=== PATIENT | female | born 1985 | race Caucasian/White ===

== ENCOUNTER 2018-12-04 04:45 | Day surgery (SDC) | payer BC, MEDICAID ==
--- NOTE | 2018-12-03 16:57 | ER Document Report ---
ED Medical Screen (RME) - General Chief Complaint: Epigastric Pain Stated Complaint: ABDOMINAL PAIN Time Seen by Provider: 12/03/18 16:50 Primary Care Provider: ABBI EUBANKS NP [Primary Care Provider] - Follow up as needed TRAVEL OUTSIDE OF THE [place] IN LAST 30 DAYS: No - HPI Notes: 12/03/18 16:56 33-year-old female to the emergency department with complaints of epigastric and right upper quadrant abdominal pain that has gotten worse over the past [age] year-old female to the emergency department with complaints of epigastric and right upper quadrant abdominal pain that has been getting progressively worse over the past month month but constant today with associated nausea and vomiting today. She states that she has had at least 10 episodes of vomiting today. She admits to sweating but no joni fevers. She denies any association with any types of foods. She denies family history of gallbladder disease. She drinks alcohol occasionally but none recently. She does not have a history of pancreatitis. She still has a gallbladder. I performed a medical screening exam on patient. She has epigastric and right upper quadrant abdominal pain on exam. We will go ahead and order gallbladder ultrasound as well as labs, fluids, Zofran and pain medicine. Patient agrees with the plan. - Related Data Allergies/Adverse Reactions: No Known Allergies Allergy (Verified 12/03/18 16:24) Past Medical History - Social History Chew tobacco use (# tins/day): No Frequency of alcohol use: None Drug Abuse: None - Immunizations Hx Diphtheria, Pertussis, Tetanus Vaccination: No Physical Exam - Vital signs Vitals: Temp Pulse Resp BP Pulse Ox 97.7 F 60 20 116/71 99 12/03/18 16:26 12/03/18 16:26 12/03/18 16:26 12/03/18 16:26 12/03/18 16:26 Course - Vital Signs Vital signs: Temp Pulse Resp BP Pulse Ox 97.7 F 60 20 116/71 99 12/03/18 16:26 12/03/18 16:26 12/03/18 16:26 12/03/18 16:26 12/03/18 16:26 Doctor's Discharge - Discharge Referrals: ABBI EUBANKS NP [Primary Care Provider] - Follow up as needed
--- NOTE | 2018-12-03 17:33 | ER Document Report ---
ED GI/ - General Chief Complaint: Epigastric Pain Stated Complaint: ABDOMINAL PAIN Time Seen by Provider: 12/03/18 16:50 Mode of Arrival: Ambulatory Information source: Patient Notes: 33-year-old female presents to ED for complaint of epigastric abdominal pain that is gotten worse over the last month. She states it is been constant all day and she is vomited at least 10 times today. Patient states she has been sweating today but has not had any fevers. She states the pain and vomiting is not associated with any type of food. She states she does not have a personal history of gallbladder disease but does have a family history. She states she drinks less than once or twice a year. She does not have any history of any pancreatic or gallbladder problems. She is alert and oriented respirations regular and unlabored speaking in full sentences. TRAVEL OUTSIDE OF THE [place] IN LAST 30 DAYS: No - HPI Patient complains to provider of: Abdominal pain, Vomiting Onset: Other - Month ago worse today Timing/Duration: Intermittent - For the last month, Persistent - Today Quality of pain: Sharp, Stabbing Severity at maximum: Moderate Severity in ED: Moderate, Severe Pain Level: 4 Location: RUQ Vaginal bleeding (Compared to normal period): Similar - Start her menstrual cycle today Associated symptoms: Nausea, Vomiting Exacerbated by: Denies Relieved by: Denies Similar symptoms previously: Yes Recently seen / treated by doctor: No - Related Data Allergies/Adverse Reactions: Sulfa (Sulfonamide Antibiotics) Allergy (Intermediate, Verified 12/03/18 23:31) Hives Past Medical History - General Information source: Patient - Social History Smoking Status: Former Smoker - vapor cigarette now Chew tobacco use (# tins/day): No Frequency of alcohol use: Rare Drug Abuse: None Lives with: Family Family History: Reviewed & Not Pertinent Patient has suicidal ideation: No Patient has homicidal ideation: No - Past Medical History Cardiac Medical History: Reports: None Pulmonary Medical History: Reports: Hx Asthma EENT Medical History: Reports: None Neurological Medical History: Reports: None Endocrine Medical History: Reports: None Renal/ Medical History: Reports: None Malignancy Medical History: Reports: None GI Medical History: Reports: None Musculoskeletal Medical History: Reports None Skin Medical History: Reports None Psychiatric Medical History: Reports: None Traumatic Medical History: Reports: None Infectious Medical History: Reports: None Surgical Hx: Negative Past Surgical History: Reports: None - Immunizations Hx Diphtheria, Pertussis, Tetanus Vaccination: Yes - 2011 Review of Systems - Review of Systems Constitutional: No symptoms reported EENT: No symptoms reported Cardiovascular: No symptoms reported Respiratory: No symptoms reported Gastrointestinal: Abdominal pain, Nausea, Vomiting Genitourinary: No symptoms reported Female Genitourinary: No symptoms reported Musculoskeletal: No symptoms reported Skin: No symptoms reported Hematologic/Lymphatic: No symptoms reported Neurological/Psychological: No symptoms reported -: Yes All other systems reviewed and negative Physical Exam - Vital signs Vitals: Temp Pulse Resp BP Pulse Ox 97.7 F 60 20 116/71 99 12/03/18 16:26 12/03/18 16:26 12/03/18 16:26 12/03/18 16:26 12/03/18 16:26 Interpretation: Normal - General General appearance: Appears well, Alert - HEENT Head: Normocephalic, Atraumatic Eyes: Normal Pupils: PERRL - Respiratory Respiratory status: No respiratory distress Chest status: Nontender Breath sounds: Normal Chest palpation: Normal - Cardiovascular Rhythm: Regular Heart sounds: Normal auscultation Murmur: No - Abdominal Inspection: Normal Distension: No distension Bowel sounds: Hyperactive Tenderness: Tender Organomegaly: No organomegaly - Back Back: Normal, Nontender - Extremities General upper extremity: Normal inspection, Nontender, Normal color, Normal ROM, Normal temperature General lower extremity: Normal inspection, Nontender, Normal color, Normal ROM, Normal temperature, Normal weight bearing. No: Yobani's sign - Neurological Neuro grossly intact: Yes Cognition: Normal Orientation: AAOx4 [place] Coma Scale Eye Opening: Spontaneous [place] Coma Scale Verbal: Oriented [place] Coma Scale Motor: Obeys Commands [place] Coma Scale Total: 15 Speech: Normal Motor strength normal: LUE, RUE, LLE, RLE Sensory: Normal - Psychological Associated symptoms: Normal affect, Normal mood - Skin Skin Temperature: Warm Skin Moisture: Dry Skin Color: Normal Course - Re-evaluation Re-evalutation: 12/03/18 19:[address] Escalante concerning her negative ultrasound elevated white count and pain to the right upper quadrant. She is already been treated with fentanyl 50 at 530 and she is in severe pain at this time. She is also nauseated. I have ordered morphine and further Zofran as well as IV fluids. Dr. Escalante recommended a CT IV and oral contrast for the abdomen and pelvis as the ultrasound was negative. Dr. Escalante came over and examined the patient. He stated that the patient could not be discharged home because she was not keeping down fluids. He stated that she did need to have a HIDA scan done if the HIDA scan was negative that she needed to be admitted to medicine for intractable nausea and vomiting if that has a scan is positive he will take her to surgery and remove the gallbladder. Patient has been to HIDA scan and we are awaiting the results. 12/04/18 02:06 Dr. German has been given an update on this patient's care. He will take over the patient's treatment now. Patient is in HIDA scan - Vital Signs Vital signs: Temp Pulse Resp BP Pulse Ox 98.5 F 58 L 17 107/50 L 99 12/04/18 11:35 12/04/18 11:35 12/04/18 11:35 12/04/18 11:35 12/04/18 11:35 - Laboratory Result Diagrams: 12/03/18 17:25 12/03/18 17:25 Laboratory results interpreted by me: 12/03/18 12/03/18 12/03/18 17:25 17:25 17:25 WBC 15.3 H Lymph % (Auto) 8.1 L Absolute Neuts (auto) 13.6 H Seg Neutrophils % 88.4 H Glucose 127 H AST 42 H Urine Ketones 20 H Urine Blood MODERATE H Discharge - Discharge Clinical Impression: Upper abdominal pain Condition: Stable Disposition: ADMITTED INPATIENT
[2018-12-03 17:40] LABS: ABSOLUTE BASOPHILS # (AUTO) 0.1 10^3/uL (0.0-0.2); ABSOLUTE LYMPHOCYTES (AUTO) 1.2 10^3/uL (0.5-4.7); ABSOLUTE MONOCYTES (AUTO) 0.5 10^3/uL (0.1-1.4); ABSOLUTE NEUT (AUTO) 13.6 10^3/uL (1.7-8.2); BASOPHILS % (AUTO) 0.4 % (0-2); HEMATOCRIT 40.3 % (36.0-47.0); LYMPHOCYTES % (AUTO) 8.1 % (13-45); MEAN CORPUSCULAR HEMOGLOBIN 30.2 pg (27.0-33.4); MEAN CORPUSCULAR HGB CONC 34.8 g/dL (32.0-36.0); MEAN CORPUSCULAR VOLUME 87 fl (80-97); MONOCYTES % (AUTO) 3.1 % (3-13); PLATELET COUNT 300 10^3/uL (150-450); RED BLOOD COUNT 4.65 10^6/uL (3.72-5.28); RED CELL DISTRIBUTION WIDTH 12.1 % (11.5-14.0); SEGMENTED NEUTROPHILS % (AUTO) 88.4 % (42-78); TOTAL CELLS COUNTED % (AUTO) 100 %; WHITE BLOOD COUNT 15.3 10^3/uL (4.0-10.5)
[2018-12-03 17:49] LABS: APPEARANCE,URINE CLEAR; BILIRUBIN,URINE NEGATIVE (NEGATIVE); COLOR,URINE YELLOW; GLUCOSE, URINE NEGATIVE (NEGATIVE); KETONES,URINE 20 mg/dL (NEGATIVE); LEUKOCYTE ESTERASE,URINE NEGATIVE (NEGATIVE); NITRITE,URINE NEGATIVE (NEGATIVE); PROTEIN,URINE NEGATIVE (NEGATIVE); URINE SPECIFIC GRAVITY 1.024; UROBILINOGEN,URINE NEGATIVE mg/dL (<2.0)
[2018-12-03 17:56] LABS: ALBUMIN 4.7 g/dL (3.5-5.0); ALKALINE PHOSPHATASE 73 U/L (38-126); ANION GAP 9 (5-19); ASPARTATE AMINO TRANSFERASE 42 U/L (14-36); BILIRUBIN,DIRECT 0.1 mg/dL (0.0-0.4); BILIRUBIN,TOTAL 0.5 mg/dL (0.2-1.3); BLOOD UREA NITROGEN 13 mg/dL (7-20); CALCIUM 9.8 mg/dL (8.4-10.2); CARBON DIOXIDE 25 mmol/L (22-30); CHLORIDE 105 mmol/L (98-107); GLUCOSE 127 mg/dL (75-110); POTASSIUM 4.3 mmol/L (3.6-5.0); TOTAL PROTEIN 7.9 g/dL (6.3-8.2)
--- NOTE | 2018-12-03 18:10 | RADIOLOGY REPORT (SQ) ---
EXAM DESCRIPTION: U/S ABDOMEN LIMITED W/O DOP COMPLETED DATE/TIME: 12/03/2018 6:01 pm REASON FOR STUDY: epigastric, RUQ abd pain, vomiting COMPARISON: None. TECHNIQUE: Dynamic and static grayscale images acquired of the abdomen and recorded on PACS. Additio rosmery selected color Doppler and spectral images recorded. LIMITATIONS: None. FINDINGS: PANCREAS: Obscured LIVER: No masses. Echotexture normal. LIVER VASCULATURE: Normal directional flow of the main portal vein and hepatic veins. GALLBLADDER: No stones. Normal wall thickness. No pericholecystic fluid. ULTRASOUND-DETECTED GONZALEZ'S SIGN: Positive. INTRAHEPATIC DUCTS AND COMMON DUCT: CBD and intrahepatic ducts normal caliber. No filling defects. INFERIOR VENA CAVA: Normal flow. AORTA: No aneurysm. RIGHT KIDNEY: Normal size. Normal echogenicity. No solid or suspicious masses. No hydronephrosis. No calcifications. PERITONEAL AND RIGHT PLEURAL SPACE: No ascites or effusions. OTHER: No other significant findings. IMPRESSION: NORMAL RIGHT UPPER QUADRANT ULTRASOUND. Positive sonographic Gonzalez's sign. TECHNICAL DOCUMENTATION: JOB ID: [id number] [employer]- All Rights Reserved Reading location - IP/workstation name: [email or web address]
--- NOTE | 2018-12-03 22:18 | RADIOLOGY REPORT (SQ) ---
EXAM DESCRIPTION: CT ABDOMEN PELVIS WITH IV CONTRAST COMPLETED DATE/TME: 12/03/2018 19:16 CLINICAL HISTORY: 33 years, Female, ruq pain with elevated wbc COMPARISON: None. TECHNIQUE: 817 Images stored on PACS. All CT scanners at this facility use dose modulation, iterative reconstruction, and/or weight based dosing when appropriate to reduce radiation dose to as low as reasonably achievable (ALARA). [facility]: Dose Right [facility]: CareDose [facility]: Dose Right [facility]: Teradose 4D [facility]: [employer] LIMITATIONS: None. FINDINGS: Visualized lung bases are unremarkable. Osseous structures are grossly intact. The liver, spleen, adrenal glands, pancreas, kidneys are unremarkable. The gallbladder is present. No gross evidence for bowel obstruction. Normal appendix. No free air or free fluid. Abundant stool in the colon IMPRESSION: Abundant stool in the colon TECHNICAL DOCUMENTATION: Quality ID # 436: Final reports with documentation of one or more dose reduction techniques (e.g., Automated exposure control, adjustment of the mA and/or kV according to patient size, use of iterative reconstruction technique) copyright 2011 [employer]- All Rights Reserved
--- NOTE | 2018-12-04 03:24 | RADIOLOGY REPORT (SQ) ---
EXAM DESCRIPTION: NM HEPATOBILIARY WITHOUT PHARM COMPLETED DATE/TME: 12/03/2018 23:52 CLINICAL HISTORY: 33 years, Female, Right upper quadrant pain nausea and vomiting COMPARISON: CT today's date RADIONUCLIDE AND DOSE: 5.4 mCi technetium 99m the vertebral foramen ADDITIONAL DRUGS AND DOSES: None TECHNIQUE: Following the IV administration of the vertebral foramen, hepatobiliary imaging was performed. 2 minute per frame images over the right upper quadrant were obtained. 90 minute delayed images were obtained however the patient was in too much pain to tolerate to our delayed images RADIATION DOSE: 5.4 mCi technetium 99m LIMITATIONS: None. FINDINGS: Normal by chronic activity and hepatic parenchyma. Prompt visualization of the CBD and small bowel after 10 to 12 minutes. There is reflux of contrast into the distal stomach. However, there is no definitive visualization of the gallbladder. IMPRESSION: No definitive visualization of the gallbladder. The patient was unable to tolerate delayed images. Cystic duct obstruction is not excluded copyright 2010 [employer]- All Rights Reserved
--- NOTE | 2018-12-04 04:25 | ER Document Report ---
Doctor's Note Notes: 12/04/18 04:24 HIDA scan shows no visualization of the gallbladder, questioning obstructive pattern. Patient will be admitted by surgery. Discharge - Discharge Clinical Impression: Upper abdominal pain Condition: Stable Disposition: ADMITTED INPATIENT Admitting Provider: Surgicalist Unit Admitted: Surgical Floor Prescriptions: Ondansetron [Zofran Odt 4 mg Tablet] 1 tab PO Q6H #7 tab.rapdis
[~2018-12-04 04:45] MED LIST: FENTANYL CITRATE INJ/PF 100 MCG/2 ML AMPUL IV ONE; MAGNESIUM CITRATE 296 ML BOTTLE PO ONE; MORPHINE SULFATE 10 MG/ML INJ IV ONE; NORMAL SALINE 1000 ML 1,000 ML IV ONE; ONDANSETRON 4 MG TAB.RAPDIS PO ONE; ONDANSETRON HCL INJ/PF 4 MG/2 ML SDV IV ONE
[2018-12-04] MEDS ORDERED: ONDANSETRON 4 MG TAB.RAPDIS PO PRN (05:01)
--- NOTE | 2018-12-04 05:01 | PDOC H&P ---
History of Present Illness Patient complains of: Abdominal pain History of Present Illness: ARLETTE MAS is a 33 year old female presenting with a several week history of frequent episodes of epigastric abdominal pain with associated nausea and in the last day frequent emesis. She is uncertain about the precipitating factors but does not think it is associated with a food intake. She notes that pain is better after Zantac. However in the last 24 hours she has had persistent epigastric and right upper quadrant abdominal pain with emesis with inability to tolerate any p.o. intake. She denies any fever. No jaundice. She does state that at times she gets sweats and gets jittery. She has not had any weight loss in the last several weeks. Past Medical History Cardiac Medical History: Reports: None Pulmonary Medical History: Reports: Asthma EENT Medical History: Reports: None Neurological Medical History: Reports: None Endocrine Medical History: Reports: None Renal/ Medical History: Reports: None Malignancy Medical History: Reports: None GI Medical History: Reports: None Musculoskeltal Medical History: Reports: None Skin Medical History: Reports: None Psychiatric Medical History: Reports: None Traumatic Medical History: Reports: None Infectious Medical History: Reports: None Past Surgical History Past Surgical History: Reports: Other - [place] teeth extraction in the remote past. Social History Lives with: Family Smoking Status: Current Every Day Smoker Frequency of Alcohol Use: Rare Hx Recreational Drug Use: No Hx Prescription Drug Abuse: No Family History Family History: Reviewed & Not Pertinent Parental Family History Reviewed: Yes - Breast cancer in grandmother but no first-degree relatives Children Family History Reviewed: Yes Sibling(s) Family History Reviewed.: Yes Medication/Allergy Home Medications: No Home Medications 1 09/17/11 Ondansetron [Zofran Odt 4 mg Tablet] 1 tab PO Q6H #7 tab.rapdis 12/03/18 Allergies/Adverse Reactions: Sulfa (Sulfonamide Antibiotics) Allergy (Intermediate, Verified 12/03/18 23:31) Ceci Review of Systems All systems: reviewed and no additional remarkable complaints except as stated Constitutional: PRESENT: as per HPI Gastrointestinal: PRESENT: as per HPI Allergic/Immunologic: PRESENT: other - Allergic to sulfa Physical Exam Vital Signs: Temp Pulse Resp BP Pulse Ox 98.1 F 80 20 129/77 H 100 12/03/18 23:27 12/03/18 23:27 12/03/18 16:26 12/03/18 23:27 12/03/18 23:27 Intake & Output 12/02/18 12/03/18 12/04/18 06:59 06:59 06:59 Weight 102.9 kg General appearance: PRESENT: no acute distress, cooperative Eye exam: PRESENT: conjunctiva pink Neck exam: PRESENT: other - Supple with no masses and no tenderness Respiratory exam: PRESENT: clear to auscultation polina Cardiovascular exam: PRESENT: RRR GI/Abdominal exam: PRESENT: other - Soft, nondistended, focal tenderness to palpation in the right upper quadrant with a positive Gonzalez sign. Extremities exam: PRESENT: other - No swelling and no tenderness Neurological exam: PRESENT: alert, awake Psychiatric exam: PRESENT: appropriate affect Skin exam: PRESENT: warm Results Laboratory Results: 12/03/18 17:25 12/03/18 17:25 12/03/18 12/03/18 12/03/18 17:25 17:25 17:25 WBC 15.3 H RBC 4.65 Hgb 14.0 Hct 40.3 MCV 87 MCH 30.2 MCHC 34.8 RDW 12.1 Plt Count 300 Seg Neutrophils % 88.4 H Sodium 139.0 Potassium 4.3 Chloride 105 Carbon Dioxide 25 Anion Gap 9 BUN 13 Creatinine 0.78 Est GFR ( Amer) > 60 Glucose 127 H Calcium 9.8 Total Bilirubin 0.5 AST 42 H Alkaline Phosphatase 73 Total Protein 7.9 Albumin 4.7 Lipase 47.0 Serum HCG, Qual NEGATIVE Urine Color Urine Appearance Urine pH Ur Specific [place] Urine Protein Urine Glucose (UA) Urine Ketones Urine Blood Urine Nitrite Ur Leukocyte Esterase Urine WBC (Auto) Urine RBC (Auto) 12/03/18 17:25 WBC RBC Hgb Hct MCV MCH MCHC RDW Plt Count Seg Neutrophils % Sodium Potassium Chloride Carbon Dioxide Anion Gap BUN Creatinine Est GFR ( Amer) Glucose Calcium Total Bilirubin AST Alkaline Phosphatase Total Protein Albumin Lipase Serum HCG, Qual Urine Color YELLOW Urine Appearance CLEAR Urine pH 5.0 Ur Specific [place] 1.024 Urine Protein NEGATIVE Urine Glucose (UA) NEGATIVE Urine Ketones 20 H Urine Blood MODERATE H Urine Nitrite NEGATIVE Ur Leukocyte Esterase NEGATIVE Urine WBC (Auto) 2 Urine RBC (Auto) 2 Impressions: Abdomen Ultrasound 12/03/18 16:55 IMPRESSION: NORMAL RIGHT UPPER QUADRANT ULTRASOUND. Positive sonographic Gonzalez's sign. Abdomen/Pelvis CT 12/03/18 19:16 IMPRESSION: Abundant stool in the colon TECHNICAL DOCUMENTATION: Quality ID # 436: Final reports with documentation of one or more dose reduction techniques (e.g., Automated exposure control, adjustment of the mA and/or kV according to patient size, use of iterative reconstruction technique) copyright 2010 [employer]- All Rights Reserved Hepatobiliary Scan Nuclear Medicine 12/03/18 23:52 IMPRESSION: No definitive visualization of the gallbladder. The patient was unable to tolerate delayed images. Cystic duct obstruction is not excluded copyright 2010 [employer]- All Rights Reserved Assessment & Plan - Diagnosis (1) Cholecystitis without cholelithiasis Is this a current diagnosis for this admission?: Yes Plan: Elevated white blood cell count, marked tenderness to palpation in the right upper quadrant, nonvisualization of the gallbladder on HIDA scan all indicate cholecystitis. I do not have an explanation for why the ultrasound and the CT scan did not demonstrate any gallbladder abnormalities, although the gallbladder does appear distended on the CT and the ultrasound study demonstrated a positive ultrasound Gonzalez sign. I have recommended to the patient admission for laparoscopic cholecystectomy. I have explained to the patient the risk and benefits of the procedure including risk of mistaken diagnosis, infection, bleeding, adjacent structure injury such as bile duct injury and intestinal injury, and postcholecystectomy diarrhea. Patient understands and agrees to proceed. If after surgery she does not have resolution of her symptoms that she has been experiencing for the past several weeks, she would benefit from a esophagogastroduodenoscopy. I will admit the patient and place her on IV antib iotics, n.p.o., IV fluids. I will discuss case with the oncoming surgeon who will perform the surgery. Patient understand that the surgery will be performed by the oncoming surgeon.
[2018-12-04] MEDS ORDERED: MORPHINE SULFATE 10 MG/ML INJ IV PRN ×2 (05:05→17:33)
[2018-12-04] MEDS ORDERED: AMPICILLIN SOD/SULBACTAM 3 GM VIAL IV PRN (05:10)
[2018-12-04] MEDS: AMPICILLIN SODIUM/SULBACTAM NA 3 GM in NORMAL SALINE 100 ML IV SCH ×4 (06:22→23:58)
[2018-12-04] MEDS: NORMAL SALINE 1000 ML 1,000 ML IV PRN ×2 (08:46→18:36)
[2018-12-04] MEDS ORDERED: IPRATROPIUM/ALBUTEROL 0.5-2.5 MG/3 ML AMPUL NEB ONE (14:54)
[2018-12-04] MEDS ORDERED: FENTANYL CITRATE INJ/PF 100 MCG/2 ML AMPUL ONE ×2 (15:33→17:08)
[2018-12-04] MEDS ORDERED: BUPIVACAINE HCL 0.25% /EPINEPHRINE INJ/PF 30 ML SDV ONE (15:33)
[2018-12-04] MEDS ORDERED: MIDAZOLAM 2 MG/2 ML INJ ONE (15:33)
[2018-12-04] MEDS ORDERED: PROPOFOL INJ 200 MG/20 ML VIAL IV ONE (15:34)
[2018-12-04] MEDS ORDERED: DIPHENHYDRAMINE HCL 50 MG/ML VIAL IV PRN (15:39)
[2018-12-04] MEDS ORDERED: OXYCODONE-ACETAMINOPHEN 5-325 MG TABLET PO PRN ×3 (15:39→17:34)
[2018-12-04] MEDS ORDERED: FENTANYL CITRATE INJ/PF 100 MCG/2 ML AMPUL IV PRN ×3 (15:39)
[2018-12-04] MEDS ORDERED: PROMETHAZINE HCL INJ 25 MG/1 ML VIAL IV PRN ×2 (15:39)
[2018-12-04] MEDS ORDERED: MEPERIDINE HCL/PF INJ 25 MG/1 ML DISP.SYRIN IV PRN (15:39)
[2018-12-04] MEDS ORDERED: BUPIVACAINE HCL 0.25% /EPINEPHRINE INJ/PF 30 ML SDV INFIL ONE ×2 (16:21)
[2018-12-04] MEDS ORDERED: KETOROLAC TROMETHAMINE INJ/PF 30 MG/1 ML SDV ONE (17:49)
--- NOTE | 2018-12-04 17:54 | Operative Report ---
Operative Report DATE OF SURGERY: 12/04/18 PREOPERATIVE DIAGNOSIS: Acute acalculous cholecystitis POSTOPERATIVE DIAGNOSIS: Acute cholecystitis and cholelithiasis OPERATION: Laparoscopic cholecystectomy SURGEON: ORVILLE NICOLE ANESTHESIA: GA TISSUE REMOVED OR ALTERED: Gallbladder with stone COMPLICATIONS: None ESTIMATED BLOOD LOSS: 15 cc QUANTITATIVE BLOOD LOSS: 15 INTRAOPERATIVE FINDINGS: Acute cholecystitis with gallstone PROCEDURE: Patient was placed in supine position and after adequate general anesthesia the abdomen was then prepped and draped in the usual sterile fashion. Appropriate timeout was called. Next infraumbilical incision was made in the fascia grasped with Alem clamps and divided in the middle with 15 blade. 2 sutures of [address] on the fascia on each side of the trocar. The trochars were removed and fascia opening was then dilated with hemostat. A Morgan trocar was then inserted through the fascia to the abdominal cavity and CO2 insufflated to a pressure of 15 mmHg. A camera was then inserted. 3 other trochars were placed under direct vision. A 15 mm in the subxiphoid and 2 5 mm in the right upper quadrant. Gallbladder was then identified to be markedly distended. It was then partially evacuated with a long needle through 1 of the trocar sites. This allowed us to grasp the gallbladder. The gallbladder was then subsequently grasped and pulled over the liver. Adhesions around the area towards the cystic duct was then bluntly dissected with the use of harmonic latanya. The gallbladder was noted to be thickened wall. The cystic duct was then identified and subsequently clipped with hemoclips and divided between the distal hemoclips. The cystic artery also identified and clipped and then divided with the harmonic latanya between the clip and the gallbladder area. The gallbladder was then taken off the liver bed with the use of harmonic latanya. The gallbladder was then completely removed from the liver bed and put in an Endobag and pulled out through the umbilical port. There was palpable single stone about 1 cm in diameter in the gallbladder. Gallbladder also somewhat thickened wall. The liver bed was then inspected and irrigated. No active bleeding noted. Piece of Surgicel was placed in the liver bed for better hemostasis. All the trochars were removed and CO2 allowed to come out of the trocar sites. The infraumbilical fascial defect was then closed with a [id number] suture using 0 Vicryl and the 2 stay sutures tied over for better closure. Local anesthesia was then infiltrated over the fascia and on the incision sites. The skin incisions were then closed with running subcuticular 4-0 Vicryl undyed. Steri-Strips placed over the operative sites. Needle instrument sponge counts were all correct and estimated blood loss about 15 cc. Patient brought to recovery room satisfactory condition.
[2018-12-04] MEDS: KETOROLAC TROMETHAMINE INJ/PF 30 MG/1 ML SDV IV SCH (18:36)
[2018-12-04] MEDS ORDERED: ONDANSETRON HCL INJ/PF 4 MG/2 ML SDV ONE (20:25)
[2018-12-05] MEDS: KETOROLAC TROMETHAMINE INJ/PF 30 MG/1 ML SDV IV SCH ×2 (00:07→05:45)
[2018-12-05] MEDS: AMPICILLIN SODIUM/SULBACTAM NA 3 GM in NORMAL SALINE 100 ML IV SCH (05:45)
[2018-12-05 08:52] VITALS: BP 121/74
--- NOTE | 2018-12-11 22:21 | PDOC DISCHARGE SUMMARY ---
General - Admit/Disc Date/PCP Admission Date/Primary Care Provider: 12/04/18 04:45 Discharge Date: 12/05/18 - Discharge Diagnosis Final Diagnosis: aaaaaaaaaaaaaaaacute suppurative cholelithiasis and cholelithiasis - Assessment Summary: 33-year-old female with right upper quadrant abdominal pains for few weeks. Patient was seen in the ED on 12/03/2018 and had an ultrasound which showed no stones but suspicious for acute acalculous cholecystitis. A HIDA scan was then performed which showed no uptake of the dye into the gallbladder indicating acute cholecystitis. Patient was then admitted on 12/04/2018 and underwent laparoscopic cholecystectomy by Dr. Hull on 12/04/2018. Her postoperative course was uneventful and subsequently discharged on 12/05/2018 with final diagnosis of acute cholecystitis with cholelithiasis she will be followed up in the surgical clinic in 2 weeks and instructed not to do any lifting more than 15 pounds until seen in the clinic. - Additional Information Resuscitation Status: Full Code Discharge Diet: As Tolerated, Regular Discharge Activity: Balance Activity w/Rest Referrals: [facility] [Provider Group] - 12/12/18 11:00 am Prescriptions: Ondansetron [Zofran Odt 4 mg Tablet] 1 tab PO Q6H #7 tab.rapdis Home Medications: Ondansetron [Zofran Odt 4 mg Tablet] 1 tab PO Q6H #7 tab.rapdis 12/03/18 Norethindrone AC-Eth Estradiol [Junel] 1 each PO DAILY 12/04/18 History of Present Illiness History of Present Illness: ARLETTE MAS is a 33 year old female Physical Exam Vital Signs: Temp Pulse Resp BP Pulse Ox 98.2 F 81 16 107/50 L 99 12/05/18 08:49 12/05/18 08:49 12/05/18 08:49 12/05/18 08:49 12/05/18 08:49 Results Laboratory Results: WBC 15.3 10^3/uL (4.0-10.5) H 12/03/18 17:25 RBC 4.65 10^6/uL (3.72-5.28) 12/03/18 17:25 Hgb 14.0 g/dL (12.0-15.5) 12/03/18 17:25 Hct 40.3 % (36.0-47.0) 12/03/18 17:25 MCV 87 fl (80-97) 12/03/18 17:25 MCH 30.2 pg (27.0-33.4) 12/03/18 17:25 MCHC 34.8 g/dL (32.0-36.0) 12/03/18 17:25 RDW 12.1 % (11.5-14.0) 12/03/18 17:25 Plt Count 300 10^3/uL (150-450) 12/03/18 17:25 Lymph % (Auto) 8.1 % (13-45) L 12/03/18 17:25 [place] % (Auto) 3.1 % (3-13) 12/03/18 17:25 Eos % (Auto) 0.0 % (0-6) 12/03/18 17:25 Baso % (Auto) 0.4 % (0-2) 12/03/18 17:25 Absolute Neuts (auto) 13.6 10^3/uL (1.7-8.2) H 12/03/18 17:25 Absolute Lymphs (auto) 1.2 10^3/uL (0.5-4.7) 12/03/18 17:25 Absolute Monos (auto) 0.5 10^3/uL (0.1-1.4) 12/03/18 17:25 Absolute Eos (auto) 0.0 10^3/uL (0.0-0.6) 12/03/18 17:25 Absolute Basos (auto) 0.1 10^3/uL (0.0-0.2) 12/03/18 17:25 Seg Neutrophils % 88.4 % (42-78) H 12/03/18 17:25 Sodium 139.0 mmol/L (137-145) 12/03/18 17:25 Potassium 4.3 mmol/L (3.6-5.0) 12/03/18 17:25 Chloride 105 mmol/L (98-107) 12/03/18 17:25 Carbon Dioxide 25 mmol/L (22-30) 12/03/18 17:25 Anion Gap 9 (5-19) 12/03/18 17:25 BUN 13 mg/dL (7-20) 12/03/18 17:25 Creatinine 0.78 mg/dL (0.52-1.25) 12/03/18 17:25 Est GFR ( Amer) > 60 (>60) 12/03/18 17:25 Est GFR (MDRD) Non-Af > 60 (>60) 12/03/18 17:25 Glucose 127 mg/dL (75-110) H 12/03/18 17:25 Calcium 9.8 mg/dL (8.4-10.2) 12/03/18 17:25 Total Bilirubin 0.5 mg/dL (0.2-1.3) 12/03/18 17:25 Direct Bilirubin 0.1 mg/dL (0.0-0.4) 12/03/18 17:25 Neonat Total Bilirubin Not Reportable 12/03/18 17:25 Neonat Direct Bilirubin Not Reportable 12/03/18 17:25 Neonat Indirect Bili Not Reportable 12/03/18 17:25 AST 42 U/L (14-36) H 12/03/18 17:25 ALT 80 U/L (<35) 12/03/18 17:25 Alkaline Phosphatase 73 U/L (38-126) 12/03/18 17:25 Total Protein 7.9 g/dL (6.3-8.2) 12/03/18 17:25 Albumin 4.7 g/dL (3.5-5.0) 12/03/18 17:25 Lipase 47.0 U/L (23-300) 12/03/18 17:25 Serum HCG, Qual NEGATIVE (NEGATIVE) 12/03/18 17:25 Urine Color YELLOW 12/03/18 17:25 Urine Appearance CLEAR 12/03/18 17:25 Urine pH 5.0 (5.0-9.0) 12/03/18 17:25 Ur Specific [place] 1.024 12/03/18 17:25 Urine Protein NEGATIVE mg/dL (NEGATIVE) 12/03/18 17:25 Urine Glucose (UA) NEGATIVE mg/dL (NEGATIVE) 12/03/18 17:25 Urine Ketones 20 mg/dL (NEGATIVE) H 12/03/18 17:25 Urine Blood MODERATE (NEGATIVE) H 12/03/18 17:25 Urine Nitrite NEGATIVE (NEGATIVE) 12/03/18 17:25 Urine Bilirubin NEGATIVE (NEGATIVE) 12/03/18 17:25 Urine Urobilinogen NEGATIVE mg/dL (<2.0) 12/03/18 17:25 Ur Leukocyte Esterase NEGATIVE (NEGATIVE) 12/03/18 17:25 Urine WBC (Auto) 2 /HPF 12/03/18 17:25 Urine RBC (Auto) 2 /HPF 12/03/18 17:25 Squamous Epi Cells Auto 1 /HPF 12/03/18 17:25 Urine Mucus (Auto) RARE /LPF 12/03/18 17:25 Urine Ascorbic Acid NEGATIVE (NEGATIVE) 12/03/18 17:25 Impressions: Abdomen Ultrasound 12/03/18 16:55 IMPRESSION: NORMAL RIGHT UPPER QUADRANT ULTRASOUND. Positive sonographic Gonzalez's sign. Abdomen/Pelvis CT 12/03/18 19:16 IMPRESSION: Abundant stool in the colon TECHNICAL DOCUMENTATION: Quality ID # [id number]: Final reports with documentation of one or more dose reduction techniques (e.g., Automated exposure control, adjustment of the mA and/or kV according to patient size, use of iterative reconstruction technique) copyright 2011 [employer]- All Rights Reserved Hepatobiliary Scan Nuclear Medicine 12/03/18 23:52 IMPRESSION: No definitive visualization of the gallbladder. The patient was unable to tolerate delayed images. Cystic duct obstruction is not excluded copyright 2011 [employer]- All Rights Reserved
== END 2018-12-05 09:34 | disposition home or self-care (01) ==
LOC: OROUT 04:45 → UNDOADMIN 04:45 → EH 04:45 → OROUT 04:45 → EH 06:10 → 4N 06:10 → OROUT 12-05 09:34 → UNDODISIN 12-05 09:34
PROVIDERS: ATTEND Emergency Medicine
DX: K80.12 Calculus of gallbladder with acute and chronic cholecystitis without obstruction (principal); J45.909 Unspecified asthma, uncomplicated; F17.210 Nicotine dependence, cigarettes, uncomplicated; Z88.2 Allergy status to sulfonamides
CPT/HCPCS: 96376; 99285; 96361; 96374; 96375; 36415 ×2; 87040; 83690; 84703; 85025; 80053; 81001; 88304 ×2; 76705; 78226; 74177; 00790; 47562; G0378 ×3; A9537; J2250; J3490 ×2; S0119; J3010 ×2; J0295 ×2; J1885 ×2; J2270 ×2; J2405 ×2; J7050 ×2; J7030 ×2; J2704; J7620; Q9969; 790